=== PATIENT | male | born 1995 | race Caucasian/White ===

== ENCOUNTER 2017-02-13 10:24 | Emergency (ER) ==
[2017-02-13 10:34] VITALS: BP 141/89; TEMP 98; BMI 33.5
[2017-02-13] MEDS ORDERED: MOTRIN PO STA (10:50)
[2017-02-13 11:38] LABS: FLU INTERNAL QC INTERNAL QC VALID; RAPID FLU A NEGATIVE (NEGATIVE); RAPID FLU B NEGATIVE (NEGATIVE)
--- NOTE | 2017-02-13 11:45 | ED.PDOC ---
General ED Provider: Dr. PRUDENCE PONCE Chief Complaint: Cough Stated Complaint: Pateint present to the ER with symtoms of fever, sore throat and cough that starting this morining. Time Seen by Physician: 10:45 Mode of Arrival: Walk-In Information Source: Patient [facility] and Triage Documentation Reviewed and Agree: Yes EENT Complaint Exam - Throat Complaint/Exam Onset/Duration: today Symptoms Are: Still present Timimg: Constant Initial Severity: Moderate Current Severity: Moderate Aggravating: Reports: Eating Alleviating: Reports: None Associated Signs and Symptoms: Reports: Fever, Dysphagia, Cough. Denies: Vomiting, Diarrhea, Decreased hearing, Ear drainage Related History: Denies: Seasonal allergies, Smoking Uvula Midline: No Sandra-tonsillar Fluctuence: No Scarlatinaform Rash Present: No Lesions: Absent: Lip, Gums, Tongue, Buccal Mucosa, Pharynx Exanthem: Absent: Lip, Gums, Tongue, Buccal Mucosa, Pharynx Vesicles: Absent: Lip, Gums, Tongue, Buccal Mucosa, Pharynx Stridor Present: No Sinus Tenderness Present: No Tonsillar Hypertrophy Present: No Tonsillar Exudate Present: No Sandra-tonsillar Swelling Present: No Adenopathy Present: No Splenomegaly Present: No Differential Diagnoses: Pharyngitis, Tonsillitis, URI Review of Systems - Review Of Systems Constitutional: Reports: Fever Eyes: Reports: No symptoms Ears, Nose, Mouth, Throat: Reports: No symptoms, Throat pain Respiratory: Reports: Cough Cardiac: Reports: No symptoms GI: Reports: No symptoms : Reports: No symptoms Musculoskeletal: Reports: No symptoms Skin: Reports: No symptoms Neurological: Reports: No symptoms Endocrine: Reports: No symptoms Hematologic/Lymphatic: Reports: No symptoms All Other Systems: Reviewed and Negative Past Medical History - Past Medical History Previously Healthy: Yes Endocrine: Reports: None Cardiovascular: Reports: None Respiratory: Reports: None Hematological: Reports: None Gastrointestinal: Reports: None Genitourinary: Reports: None Neuro/Psych: Reports: None Musculoskeletal: Reports: None Cancer: Reports: None - Surgical History General Surgical History: Reports: None - Family History Family History: Reports: None - Social History Smoking Status: Never smoker Hx Substance Use: No Alcohol Screening: None - Immunizations Tetanus Shot up to Date: Yes Physical Exam - Physical Exam Appearance: Ill-appearing, Well-nourished Ill-appearing: Mild Pain Distress: Mild Eyes: ADAM, EOMI, Conjunctiva clear ENT: Ears normal, Nose normal, Erythema Neck: Supple Respiratory: Airway patent, Breath sounds clear, Breath sounds equal, Respirations nonlabored Cardiovascular: RRR, Pulses normal, No rub, No murmur GI/: Soft, Nontender, No masses, Bowel sounds normal, No Organomegaly Musculoskeletal: Normal strength, ROM intact, No edema, No calf tenderness Skin: Warm, Dry, Normal color Neurological: Sensation intact, Motor intact, Reflexes intact, Cranial nerves intact, Alert, Oriented Psychiatric: Affect appropriate, Mood appropriate Critical Care Note - Critical Care Note Total Time (mins): 0 Course - Course Orders, Labs, Meds: Lab Review 02/13/17 11:10 Influenza A (Rapid) Negative Influenza B (Rapid) Negative Orders Category Date Time Status FLU A & B RAPID TEST [RAPID FLU A/B] Stat LAB 02/13/17 11:10 Completed MOLECULAR GROUP A STREP Stat LAB 02/13/17 11:10 Results STREP SCREEN Stat LAB 02/13/17 11:10 Results Ibuprofen [Motrin] MEDS 02/13/17 10:50 Discontinued 600 mg PO ONCE STA Medications Discontinued Medications Generic Name Dose Route Start Last Admin Trade Name Freq PRN Reason Stop Dose Admin Ibuprofen 600 mg 02/13/17 10:50 02/13/17 11:02 Motrin PO 02/13/17 10:51 600 mg ONCE STA Administration Vital Signs: Temp Pulse Resp BP Pulse Ox 02/13/17 10:30 98.0 F 106 H 16 141/89 H 98 Departure - Departure Time of Disposition: 11:45 Disposition: HOME SELF-CARE Discharge Problem: Cough, Viral pharyngitis Instructions: Pharyngitis in Children (ED), Cold Symptoms (ED) Condition: Stable Pt referred to PMD for follow-up: Yes Additional Instructions: Push fluids, Follow up with PCP in 3 days Alternate Tylenol with Motrin as needed for fever or pain . Allergies/Adverse Reactions: Allergies No Known Allergies Allergy (Unverified 02/13/17 10:30) Home Medications: Ambulatory Orders 1 [No Reported Medications] 02/13/17 Disposition Discussed With: Patient, Family
== END 2017-02-13 11:50 | disposition home or self-care (01) ==
LOC: ED 10:24
DX: J02.9 Acute pharyngitis, unspecified (principal); R05 Cough
CPT/HCPCS: 87651; 87804; 87880; 99283

== ENCOUNTER 2017-05-01 17:53 | Emergency (ER) ==
[2017-05-01 17:57] VITALS: TEMP 99; BMI 35.4
--- NOTE | 2017-05-01 18:07 | ED.PDOC ---
General ED Provider: Dr. PRUDENCE PONCE Chief Complaint: Respiratory Complaint Stated Complaint: Patient states he has been sick for 3 days. She states has a non-productive cough and a runny nose. States drainage is clear from nose. Has been taking over the counter medications. Time Seen by Physician: 18:06 Mode of Arrival: Walk-In Information Source: Patient Exam Limitations: No limitations [facility] and Triage Documentation Reviewed and Agree: Yes Reviewed sepsis parameters & appropriate labs ordered?: No System Inflammatory Response Syndrome: Not Applicable Sepsis Protocol: For patient's 13 years and over: Temp is 96.8 and below OR 101 and greater Pulse >90 BPM Resp >20/minute Acutely Altered Mental Status Are patient's symptoms suggestive of a new infection, such as: -Pneumonia -Skin, Soft Tissue -Endocarditis -UTI -Bone, Joint Infection -Implantable Device -Acute Abdominal Infection -Wound Infection -Meningitis -Blood Stream Catheter Infection -Unknown System Inflammatory Response Syndrome: Not Applicable Review of Systems - Review Of Systems Constitutional: Reports: No symptoms Eyes: Reports: No symptoms Ears, Nose, Mouth, Throat: Reports: Ear discharge, Nose discharge Respiratory: Reports: Cough Cardiac: Reports: No symptoms GI: Reports: No symptoms : Reports: No symptoms Musculoskeletal: Reports: No symptoms Skin: Reports: No symptoms Neurological: Reports: No symptoms Endocrine: Reports: No symptoms Hematologic/Lymphatic: Reports: No symptoms All Other Systems: Reviewed and Negative Past Medical History - Past Medical History Previously Healthy: Yes Endocrine: Reports: None Cardiovascular: Reports: None Respiratory: Reports: None Hematological: Reports: None Gastrointestinal: Reports: None Genitourinary: Reports: None Neuro/Psych: Reports: None Musculoskeletal: Reports: None Cancer: Reports: None - Surgical History General Surgical History: Reports: None - Family History Family History: Reports: None - Social History Smoking Status: Never smoker Hx Substance Use: No Alcohol Screening: None Physical Exam - Physical Exam Appearance: Well-appearing, No pain distress, Well-nourished Eyes: ADAM, EOMI, Conjunctiva clear ENT: Ears normal, Oropharynx normal, Rhinorrhea Neck: Supple Respiratory: Airway patent, Breath sounds clear, Breath sounds equal, Respirations nonlabored Cardiovascular: RRR, Pulses normal, No rub, No murmur GI/: Soft, Nontender, No masses, Bowel sounds normal, No Organomegaly Musculoskeletal: Normal strength, ROM intact, No edema, No calf tenderness Skin: Warm, Dry, Normal color Neurological: Sensation intact, Motor intact, Reflexes intact, Cranial nerves intact, Alert, Oriented Psychiatric: Affect appropriate, Mood appropriate Critical Care Note - Critical Care Note Total Time (mins): 0 Course - Course Vital Signs: Temp Pulse Resp BP Pulse Ox 05/01/17 18:40 100 H 20 130/80 99 05/01/17 17:53 99.0 F 95 H 16 135/93 H 97 Departure - Departure Time of Disposition: 18:24 Disposition: HOME SELF-CARE Discharge Problem: Allergic rhinitis Qualifiers: Allergic rhinitis trigger: unspecified Allergic rhinitis seasonality: seasonal Qualified Code(s): J30.2 - Other seasonal allergic rhinitis Instructions: Allergic Rhinitis in Children (ED) Condition: Good Pt referred to PMD for follow-up: Yes IPMP verified?: No Additional Instructions: Take home allergy medications Follow up with PCP in 3 days Push fluids Allergies/Adverse Reactions: Allergies No Known Allergies Allergy (Verified 05/01/17 17:56) Home Medications: Ambulatory Orders 1 [No Reported Medications] 02/13/17 Disposition Discussed With: Patient, Family
[2017-05-01 19:01] VITALS: BP 130/80
== END 2017-05-01 18:42 | disposition home or self-care (01) ==
LOC: ED 17:53
DX: J30.2 Other seasonal allergic rhinitis (principal); R05 Cough
CPT/HCPCS: 99282

== ENCOUNTER 2017-06-16 19:02 | Emergency (ER) ==
[2017-06-16 19:06] VITALS: BP 162/103; TEMP 98.1; BMI 34.9
[2017-06-16] MEDS ORDERED: DECADRON 4 MG/ML SDV IM STA (19:07)
[2017-06-16] MEDS ORDERED: TORADOL IM STA (19:08)
--- NOTE | 2017-06-16 19:59 | ED.PDOC ---
General ED Provider: Dr. LM ESPINOZA-ER Chief Complaint: Foot Pain/Injury Stated Complaint: my toe is red and swollen and i didnt hurt it Time Seen by Physician: 19:05 Mode of Arrival: Walk-In Information Source: Patient Exam Limitations: No limitations [facility] Nursing and Triage Documentation Reviewed and Agree: Yes Reviewed sepsis parameters & appropriate labs ordered?: Yes System Inflammatory Response Syndrome: Not Applicable Sepsis Protocol: For patient's 13 years and over: Temp is 96.8 and below OR 101 and greater Pulse >90 BPM Resp >20/minute Acutely Altered Mental Status Are patient's symptoms suggestive of a new infection, such as: -Pneumonia -Skin, Soft Tissue -Endocarditis -UTI -Bone, Joint Infection -Implantable Device -Acute Abdominal Infection -Wound Infection -Meningitis -Blood Stream Catheter Infection -Unknown Musculoskeletal Complaint Exam - Ankle/Foot Complaint/Exam Location of Injury: Reports: Right, Toe #1 Mechanism of Injury: Reports: No known trauma Onset/Duration: 3 days Symptoms Are: Reports: Still present Onset of Pain: Reports: Immediate Initial Severity: Mild Current Severity: Mild Location: Reports: Discrete Character: Reports: Dull, Aching Aggravating: Reports: Movement, Weight bearing, Prolonged standing Able to Bear Weight: No Associated Signs and Symptoms: Reports: Swelling, Redness Lower Extremity Findings: Present: Swelling, Tenderness, Limited range of motion Achilles Tendon Abnormality: No Differential Diagnosis: Gout Review of Systems - Review Of Systems Constitutional: Reports: No symptoms Eyes: Reports: No symptoms Ears, Nose, Mouth, Throat: Reports: No symptoms Respiratory: Reports: No symptoms Cardiac: Reports: No symptoms GI: Reports: No symptoms : Reports: No symptoms Musculoskeletal: Reports: Joint pain, Joint swelling Skin: Reports: No symptoms Neurological: Reports: No symptoms Endocrine: Reports: No symptoms Hematologic/Lymphatic: Reports: No symptoms All Other Systems: Reviewed and Negative Past Medical History - Past Medical History Previously Healthy: Yes Endocrine: Reports: None Cardiovascular: Reports: None Respiratory: Reports: None Hematological: Reports: None Gastrointestinal: Reports: None Genitourinary: Reports: None Neuro/Psych: Reports: None Musculoskeletal: Reports: None Cancer: Reports: None - Surgical History General Surgical History: Reports: None - Family History Family History: Reports: None - Social History Smoking Status: Never smoker Hx Substance Use: No Alcohol Screening: None Physical Exam - Physical Exam Appearance: Well-appearing, No pain distress, Well-nourished Pain Distress: Moderate Eyes: ADAM, EOMI, Conjunctiva clear ENT: Ears normal, Nose normal, Oropharynx normal Respiratory: Airway patent, Breath sounds clear, Breath sounds equal, Respirations nonlabored Cardiovascular: RRR, Pulses normal, No rub, No murmur GI/: Soft, Nontender, No masses, Bowel sounds normal, No Organomegaly Musculoskeletal: Normal strength, ROM intact, No edema, No calf tenderness Skin: Warm, Dry, Normal color Neurological: Sensation intact, Motor intact, Reflexes intact, Cranial nerves intact, Alert, Oriented Psychiatric: Affect appropriate, Mood appropriate Critical Care Note - Critical Care Note Total Time (mins): 0 Course - Course Hematology/Chemistry: 06/16/17 19:20 06/16/17 19:20 Orders, Labs, Meds: Lab Review 06/16/17 06/16/17 19:20 19:20 WBC 12.99 H RBC 5.34 Hgb 14.9 Hct 42.8 MCV 80.1 MCH 27.9 MCHC 34.8 RDW Coeff of Danial 12.9 Plt Count 299 Immature Gran % (Auto) 0.2 Neut % (Auto) 57.1 Lymph % (Auto) 26.9 Hawkins % (Auto) 14.2 H Eos % (Auto) 1.2 Baso % (Auto) 0.4 Immature Gran # (Auto) 0.0 Neut # (Auto) 7.4 H Lymph # (Auto) 3.5 H Hawkins # (Auto) 1.9 Eos # (Auto) 0.2 Baso # (Auto) 0.1 ESR Pending Sodium 143 Potassium 3.8 Chloride 104 Carbon Dioxide 27 Anion Gap 15.8 BUN 16 Creatinine 0.97 Estimated GFR (MDRD) 99.00 BUN/Creatinine Ratio 16.49 Glucose 62 L Uric Acid 10.3 H Calcium 9.7 Orders Category Date Time Status BASIC METABOLIC PANEL Stat LAB 06/16/17 19:20 Completed CBC W/ AUTO DIFF Stat LAB 06/16/17 19:20 Results ESR Stat LAB 06/16/17 19:20 Results URIC ACID Stat LAB 06/16/17 19:20 Completed Dexamethasone 4 mg/ml Inj [Decadron 4 mg/ml Sdv] MEDS 06/16/17 19:07 Discontinued 8 mg IM ONCE STA Ketorolac Tromethamine [Toradol] MEDS 06/16/17 19:08 Discontinued 60 mg IM ONCE STA TOE(S), RIGHT MIN 2V Stat RADS 06/16/17 19:07 Taken Medications Discontinued Medications Generic Name Dose Route Start Last Admin Trade Name Abhijeet PRN Reason Stop Dose Admin Dexamethasone Sodium Phosphate 8 mg 06/16/17 19:07 06/16/17 19:20 Decadron 4 Mg/Ml Sdv IM 06/16/17 19:08 8 mg ONCE STA Administration Ketorolac Tromethamine 60 mg 06/16/17 19:08 06/16/17 19:21 Toradol IM 06/16/17 19:09 60 mg ONCE STA Administration Vital Signs: Temp Pulse Resp BP Pulse Ox 06/16/17 19:02 98.1 F 103 H 18 162/103 H 97 Departure - Departure Time of Disposition: 19:59 Disposition: HOME SELF-CARE Discharge Problem: Gout attack Qualifiers: Gout site: toe Gout etiology: unspecified cause Laterality: right Qualified Code(s): M10.9 - Gout, unspecified Instructions: Gout (ED), Low Purine Diet (ED) Condition: Good Pt referred to PMD for follow-up: Yes IPMP verified?: No Additional Instructions: medrol dose pack--you need to follow a diet--he need to establish yourself with a medical provider to treat your gout Allergies/Adverse Reactions: Allergies No Known Allergies Allergy (Verified 06/16/17 19:07) Home Medications: Ambulatory Orders 1 [No Reported Medications] 02/13/17 Disposition Discussed With: Patient
--- NOTE | 2017-06-17 07:46 | DI ---
EXAM: Right toe first digit three views HISTORY: Toe swelling and pain COMPARISON: None FINDINGS: The bones are normal. The joints are normal. No focal soft tissue abnormality. IMPERSSION: Normal examination.
== END 2017-06-16 20:10 | disposition home or self-care (01) ==
LOC: ED 19:02
DX: M10.9 Gout, unspecified (principal)
CPT/HCPCS: 36415; 80048; 84550; 85025; 85651; 96372; 99283